=== PATIENT | female | born 2005 | race Caucasian/White ===

== ENCOUNTER 2024-08-13 18:23 | Emergency (ER) | payer OTHER ==
[2024-08-13 18:34] VITALS: BP 110/75; PULSE 57; RESP 20; TEMP 98.2; BMI 29.9
[2024-08-13] MEDS ORDERED: METOCLOPRAMIDE HCL 10 MG TABLET (FP) PO ONE (20:53)
[2024-08-13] MEDS ORDERED: diphenhydrAMINE HCL 25 MG CAPSULE (FP) PO ONE (20:53)
[2024-08-13] MEDS ORDERED: ACETAMINOPHEN 500 MG TABLET (FP) ONE (20:55)
[2024-08-13] MEDS: diphenhydrAMINE HCL 25 MG CAPSULE (FP) PO ONE (21:00)
[2024-08-13] MEDS: METOCLOPRAMIDE HCL 10 MG TABLET (FP) PO ONE (21:01)
[2024-08-13] MEDS: ACETAMINOPHEN 500 MG TABLET (FP) PO ONE (21:01)
== END 2024-08-13 21:37 | disposition home or self-care (01) ==
LOC: JER 18:23
DX: R51.9 Headache, unspecified (principal); R42 Dizziness and giddiness; R11.0 Nausea
CPT/HCPCS: 99283-25